=== PATIENT | female | born 1985 | race Caucasian/White ===

== ENCOUNTER 2016-10-18 12:59 | Emergency (ER) ==
[2016-10-18 13:03] VITALS: BP 119/82; TEMP 97.8; BMI 22.1
--- NOTE | 2016-10-18 13:17 | ED.PDOC ---
General ED Provider: Dr. JONAH CHAMBERS JR Chief Complaint: Tooth Problem Stated Complaint: bottom left tooth started hurting last night. woke up this am with jaw swollen. unable to get into dentist until november [ End ]1 day 97.8 89 18 98% 119/82[ End ]left lower molar Time Seen by Physician: 13:17 Mode of Arrival: Walk-In Information Source: Patient Exam Limitations: No limitations [facility] Nursing and Triage Documentation Reviewed and Agree: No EENT Complaint Exam - Dental/Oral Complaint/Exam Mechanism of Injury: No known trauma Onset/Duration: one day Symptoms Are: Worse Timing: Constant Initial Severity: Moderate Current Severity: Severe Location: left lower jaw pain now swollen posterior molar site of inflammation Character: Reports: Aching Associated Signs and Symptoms: Reports: Swelling, Foul taste in mouth Related History: Reports: Similar episode, Previous tooth problem, Third molars present Review of Systems - Review Of Systems Constitutional: Reports: No symptoms Eyes: Reports: No symptoms Ears, Nose, Mouth, Throat: Reports: Mouth pain, Mouth swelling Respiratory: Reports: No symptoms Cardiac: Reports: No symptoms GI: Reports: No symptoms : Reports: No symptoms Musculoskeletal: Reports: No symptoms Skin: Reports: No symptoms Neurological: Reports: No symptoms Endocrine: Reports: No symptoms Hematologic/Lymphatic: Reports: No symptoms All Other Systems: Other Past Medical History - Past Medical History Endocrine: Reports: None Cardiovascular: Reports: None Respiratory: Reports: None Hematological: Reports: None Gastrointestinal: Reports: None Genitourinary: Reports: None Neuro/Psych: Reports: None Musculoskeletal: Reports: None Cancer: Reports: Other (CERVICAL CANCER SURGERY) Last Menstrual Period: oct 02 2016 - Surgical History General Surgical History: Reports: Tonsillectomy, Adenoidectomy, Other ( CERVICAL CANCER SURGERY). Denies: None (EAR TUBES BILATERAL) - Family History Family History: Reports: None - Social History Smoking Status: Current some day smoker Hx Substance Use: No Alcohol Screening: None Physical Exam - Physical Exam Appearance: Ill-appearing, Thin Pain Distress: Moderate Eyes: DARRYL, EOMI, Conjunctiva clear ENT: Erythema (left lower molar eroded tender with mandibular edema all teeth appear worn and carious) Neck: Supple Respiratory: Airway patent, Breath sounds clear, Breath sounds equal, Respirations nonlabored, Rhonchi (smoker) Cardiovascular: RRR, Pulses normal, No rub, No murmur Critical Care Note - Critical Care Note Total Time (mins): 0 Course - Course Vital Signs: Temp Pulse Resp BP Pulse Ox 10/18/16 12:59 97.8 F 89 18 119/82 98 Departure - Departure Time of Disposition: 13:30 Disposition: HOME SELF-CARE Discharge Problem: Tooth abscess, Toothache Instructions: Dental Abscess (ED), Toothache (ED) Condition: Good Pt referred to PMD for follow-up: Yes (dentinst) Additional Instructions: follow up with dentist as soon as possible Naprosyn for pain may take with Tylenol maximum 3000mg per day Lucio VK antibiotic until gone Prescriptions: Naproxen [Naprosyn] 500 mg PO Q12HR PRN #30 tablet PRN Reason: PAIN Penicillin V Potassium 500 mg PO QID #28 tablet Allergies/Adverse Reactions: Allergies No Known Allergies Allergy (Verified 10/18/16 13:03) Home Medications: Ambulatory Orders Naproxen [Naprosyn] 500 mg PO Q12HR PRN #30 tablet 10/18/16 Penicillin V Potassium 500 mg PO QID #28 tablet 10/18/16
== END 2016-10-18 13:44 | disposition home or self-care (01) ==
LOC: ED 12:59
DX: K04.7 Periapical abscess without sinus (principal); K08.89 Other specified disorders of teeth and supporting structures; F17.210 Nicotine dependence, cigarettes, uncomplicated
CPT/HCPCS: 99282

== ENCOUNTER 2016-11-27 00:16 | Emergency (ER) ==
[2016-11-27 00:35] VITALS: BP 136/84; TEMP 99.8; BMI 22.0
--- NOTE | 2016-11-27 00:50 | ED.PDOC ---
General ED Provider: Dr. MEREDITH MANUEL-ER Chief Complaint: Non-specific Complaint Stated Complaint: mat got a knot near my vagina Time Seen by Physician: 00:30 Mode of Arrival: Walk-In Information Source: Patient Exam Limitations: No limitations Primary Care Provider: RAIMUNDO [facility] Nursing and Triage Documentation Reviewed and Agree: Yes Skin Complaint Exam - Skin/Soft Tissue Complaint/Exam Onset/Duration: 24hrs Symptoms Are: Still present Timing: Constant Initial Severity: Mild Current Severity: Mild Location: near right labia Character: Reports: Redness, Swelling, Raised, Painful Aggravating: Reports: Touch Alleviating: Reports: None Associated Signs and Symptoms: Reports: Tenderness. Denies: Fever, Chills, Itching, Drainage, Bruising, Red streaks, Joint swelling Related Surgical History: Reports: None Recent Exposure to Others w/Similar Symptoms: No Skin Findings: Present: Erythema, Induration Joint Tenderness Present: No Differential Diagnoses: Abscess, Other Review of Systems - Review Of Systems Constitutional: Reports: No symptoms Eyes: Reports: No symptoms Ears, Nose, Mouth, Throat: Reports: No symptoms Respiratory: Reports: No symptoms Cardiac: Reports: No symptoms GI: Reports: No symptoms : Reports: No symptoms Musculoskeletal: Reports: No symptoms Skin: Reports: Lumps Neurological: Reports: No symptoms Endocrine: Reports: No symptoms Hematologic/Lymphatic: Reports: No symptoms All Other Systems: Reviewed and Negative Past Medical History - Past Medical History Endocrine: Reports: None Cardiovascular: Reports: None Respiratory: Reports: None Hematological: Reports: None Gastrointestinal: Reports: None Genitourinary: Reports: None Neuro/Psych: Reports: None Musculoskeletal: Reports: None Cancer: Reports: Other (CERVICAL CANCER SURGERY) Last Menstrual Period: 10/31/16 - Surgical History General Surgical History: Reports: Tonsillectomy, Adenoidectomy, Other ( CERVICAL CANCER SURGERY). Denies: None (EAR TUBES BILATERAL) - Family History Family History: Reports: None - Social History Smoking Status: Current some day smoker, Light tobacco smoker Hx Substance Use: No Alcohol Screening: None Lives: With family - Immunizations Tetanus Shot up to Date: Yes (thinks it is but unsure of date) Physical Exam - Physical Exam Appearance: Well-appearing, No pain distress, Well-nourished Pain Distress: Mild Eyes: DARRYL, EOMI, Conjunctiva clear ENT: Ears normal, Nose normal, Oropharynx normal Neck: Supple Respiratory: Airway patent, Breath sounds clear, Breath sounds equal, Respirations nonlabored Cardiovascular: RRR, Pulses normal, No rub, No murmur GI/: Soft, Nontender, No masses, Bowel sounds normal, No Organomegaly Musculoskeletal: Normal strength, ROM intact, No edema, No calf tenderness Skin: Warm, Dry, Normal color (exam 0.5cm cystic nodule near labia) Neurological: Sensation intact Psychiatric: Affect appropriate, Mood appropriate Critical Care Note - Critical Care Note Total Time (mins): 0 Course - Course Vital Signs: Temp Pulse Resp BP Pulse Ox 11/27/16 00:28 99.8 F H 110 H 18 136/84 99 Departure - Departure Time of Disposition: 00:50 Disposition: HOME SELF-CARE Discharge Problem: Labial cyst Instructions: Cyst (ED) Condition: Good Pt referred to PMD for follow-up: Yes Additional Instructions: clindamycin 150mg tid x 7 days--warm compresses ---recheck with pcp in 48hrs Allergies/Adverse Reactions: Allergies No Known Allergies Allergy (Verified 11/27/16 00:35) Home Medications: Ambulatory Orders 1 [No Reported Medications] 11/27/16 Disposition Discussed With: Patient, Family
== END 2016-11-27 01:05 | disposition home or self-care (01) ==
LOC: ED 00:16
DX: N90.7 Vulvar cyst (principal); F17.210 Nicotine dependence, cigarettes, uncomplicated
CPT/HCPCS: 99282

== ENCOUNTER 2017-02-26 17:25 | Outpatient (CLI) | END 2017-02-26 17:26 | disposition home or self-care (01) | LOC: AMBL 17:25 | PROVIDERS: ATTEND Emergency Medicine | DX: T23.252A Burn of second degree of left palm, initial encounter (principal); T23.251A Burn of second degree of right palm, initial encounter; T23.242A Burn of second degree of multiple left fingers (nail), including thumb, initial encounter; T23.241A Burn of second degree of multiple right fingers (nail), including thumb, initial encounter; X02.8XXA Other exposure to controlled fire in building or structure, initial encounter; R00.0 Tachycardia, unspecified ==

== ENCOUNTER 2017-06-20 15:46 | Outpatient (CLI) ==
[2017-06-20 16:15] LABS: BASOPHILS % (AUTO) 0.1 % (0.0-3.0); EOSINOPHILS # (AUTO) 0.1 K/ul (0.0-0.7); EOSINOPHILS % (AUTO) 0.9 % (0.0-7.0); HEMATOCRIT 40.1 % (37.0-47.0); HEMOGLOBIN 13.9 g/dl (12.0-16.0); IMMATURE GRANULOCYTE % (AUTO) 0.3 % (0.0-5.0); LYMPHOCYTES # (AUTO) 2.1 K/uL (0.60-3.4); LYMPHOCYTES % (AUTO) 28.9 (10.0-50.0); MEAN CORPUSCULAR HEMOGLOBIN 27.9 pg (27.0-31.0); MEAN CORPUSCULAR HGB CONC 34.7 (31.8-35.4); MEAN CORPUSCULAR VOLUME 80.5 fl (81.0-99.0); MONOCYTES # (AUTO) 0.5 K/uL (0.4-2.0); MONOCYTES % (AUTO) 7.3 (0-10); NEUTROPHILS # (AUTO) 4.6 K/ul (2.0-6.9); NEUTROPHILS % (AUTO) 62.5; PLATELET COUNT 210 10^3/uL (140-440); RED BLOOD COUNT 4.98 10^6/ul (4.20-5.40); WHITE BLOOD COUNT 7.37 K/ul (4.6-10.2)
[2017-06-20 16:57] LABS: ALANINE AMINOTRANSFERASE 22 U/L (12-78); ALBUMIN/GLOBULIN RATIO 1.11; ALKALINE PHOSPHATASE 190 U/L (42-98); ANION GAP 13.9; ASPARTATE AMINO TRANSFERASE 26 U/L (15-37); BILIRUBIN,TOTAL 0.63 mg/dL (0.00-1.20); BLOOD UREA NITROGEN 7 mg/dL (7-18); BUN/CREATININE RATIO 13.72; CALCIUM 10.5 mg/dL (8.2-10.2); CARBON DIOXIDE 22 mmol/L (21-32); CHLORIDE 107 mmol/L (98-107); CREATININE 0.51 mg/dL (0.60-1.30); GLUCOSE 100 mg/dL (70-110); POTASSIUM 3.9 mmol/L (3.5-5.10); SODIUM 139 mmol/L (136-145); TOTAL PROTEIN 7.6 g/dL (6.4-8.2)
--- NOTE | 2017-06-20 19:51 | US ---
EXAM: Thyroid ultrasound HISTORY: Iron deficiency related diffuse goiter COMPARISON: None TECHNIQUE: Thyroid ultrasound was performed FINDINGS: Right thyroid measures 2.2 x 3.2 x 6.1 cm. Left thyroid measures 2.3 x 2.6 x 6.0 cm. Thy roid isthmus measures 0.4 cm. Thyroid diffusely heterogeneous in echogenicity. Thyroid normal in va scularity. No focal thyroid nodules identified. IMPRESSION: Enlarged heterogeneous thyroid, nonspecific.
== END 2017-06-20 15:47 | disposition home or self-care (01) ==
LOC: RAD 15:46
PROVIDERS: ATTEND Emergency Medicine
DX: E01.0 Iodine-deficiency related diffuse (endemic) goiter (principal); E05.90 Thyrotoxicosis, unspecified without thyrotoxic crisis or storm
CPT/HCPCS: 36415; 80053; 84439; 84443; 84480; 84481; 85025; 86376; 86800

== ENCOUNTER 2018-01-17 15:29 | Outpatient (CLI) | END 2018-01-17 15:30 | disposition home or self-care (01) | LOC: RHC-LAB 15:29 | PROVIDERS: ATTEND Emergency Medicine | DX: E05.90 Thyrotoxicosis, unspecified without thyrotoxic crisis or storm (principal); E01.0 Iodine-deficiency related diffuse (endemic) goiter; Z34.90 Encounter for supervision of normal pregnancy, unspecified, unspecified trimester | CPT/HCPCS: 36415; 80053; 84436; 84443; 84479; 84702; 85025 ==

== ENCOUNTER 2018-02-13 12:08 | Outpatient (CLI) | END 2018-02-13 12:09 | disposition home or self-care (01) | LOC: RHC-LAB 12:08 | PROVIDERS: ATTEND Emergency Medicine | DX: E01.0 Iodine-deficiency related diffuse (endemic) goiter (principal); E05.90 Thyrotoxicosis, unspecified without thyrotoxic crisis or storm | CPT/HCPCS: 36415; 84439; 84443; 84481 ==

== ENCOUNTER 2018-02-27 15:37 | Outpatient (CLI) | END 2018-02-27 15:38 | disposition home or self-care (01) | LOC: RHC-LAB 15:37 | PROVIDERS: ATTEND Emergency Medicine | DX: E05.90 Thyrotoxicosis, unspecified without thyrotoxic crisis or storm (principal); E01.0 Iodine-deficiency related diffuse (endemic) goiter ==

== ENCOUNTER 2018-03-27 16:07 | Outpatient (CLI) | END 2018-03-27 16:08 | disposition home or self-care (01) | LOC: RHC-LAB 16:07 | PROVIDERS: ATTEND Emergency Medicine | DX: E05.90 Thyrotoxicosis, unspecified without thyrotoxic crisis or storm (principal); E01.0 Iodine-deficiency related diffuse (endemic) goiter | CPT/HCPCS: 36415; 84436; 84443; 84479 ==

== ENCOUNTER 2018-04-24 15:36 | Outpatient (CLI) | END 2018-04-24 15:37 | disposition home or self-care (01) | LOC: RHC-LAB 15:36 | PROVIDERS: ATTEND Emergency Medicine | DX: E05.90 Thyrotoxicosis, unspecified without thyrotoxic crisis or storm (principal); E01.0 Iodine-deficiency related diffuse (endemic) goiter | CPT/HCPCS: 36415; 84436; 84443; 84479 ==

== ENCOUNTER 2018-05-22 11:49 | Outpatient (CLI) | END 2018-05-22 11:50 | disposition home or self-care (01) | LOC: RHC-LAB 11:49 | PROVIDERS: ATTEND Nurse Practitioner Family | DX: E05.90 Thyrotoxicosis, unspecified without thyrotoxic crisis or storm (principal) | CPT/HCPCS: 36415; 84436; 84443; 84479 ==

== ENCOUNTER 2018-11-21 12:08 | Outpatient (CLI) | END 2018-11-21 12:09 | disposition home or self-care (01) | LOC: LAB 12:08 | PROVIDERS: ATTEND Nurse Practitioner | DX: E05.90 Thyrotoxicosis, unspecified without thyrotoxic crisis or storm (principal) | CPT/HCPCS: 36415; 84439; 84443; 84480 ==

== ENCOUNTER 2019-02-18 11:07 | Outpatient (CLI) | END 2019-02-18 11:08 | disposition home or self-care (01) | LOC: LAB 11:07 | PROVIDERS: ATTEND Nurse Practitioner | DX: E05.90 Thyrotoxicosis, unspecified without thyrotoxic crisis or storm (principal) | CPT/HCPCS: 36415; 84439; 84443; 84480 ==